=== PATIENT | male | born 1945 | race Caucasian/White ===

== ENCOUNTER 2017-03-02 08:51 | Outpatient (CLI) | payer MEDICARE, OTHER | END 2017-03-02 08:52 | disposition home or self-care (01) | LOC: SC 08:51 | PROVIDERS: ATTEND Nurse Practitioner Family | DX: G47.33 Obstructive sleep apnea (adult) (pediatric) (principal) | CPT/HCPCS: 99213; G0463; 99212 ==

== ENCOUNTER 2018-03-15 13:42 | Outpatient (CLI) | payer MEDICARE, OTHER | END 2018-03-15 13:43 | disposition home or self-care (01) | LOC: SC 13:42 | PROVIDERS: ATTEND Nurse Practitioner Family | DX: G47.33 Obstructive sleep apnea (adult) (pediatric) (principal) | CPT/HCPCS: 99213; G0463; 99212 ==

== ENCOUNTER 2018-12-20 13:44 | Outpatient (CLI) | payer MEDICARE, OTHER | END 2018-12-20 13:45 | disposition home or self-care (01) | LOC: SC 13:44 | PROVIDERS: ATTEND Nurse Practitioner Family | DX: G47.33 Obstructive sleep apnea (adult) (pediatric) (principal) | CPT/HCPCS: 99213; G0463; 99212 ==

== ENCOUNTER 2019-06-24 09:37 | Outpatient (CLI) | payer MEDICARE, OTHER ==
[2019-06-24] MEDS ORDERED: IOVERSOL 320 100 ML VIAL IVP ONE ×2 (09:38→11:00)
[2019-06-24] MEDS ORDERED: IOVERSOL 320 50 ML VIAL ONE (09:38)
[2019-06-24] MEDS ORDERED: IOVERSOL 320 50 ML VIAL PO ONE (11:00)
--- NOTE | 2019-06-26 15:01 | CT Report ---
Reason: PROSTATE CANCER Procedure Date: 06/24/2019 Accession Number: [id number] / [id number] Procedure: CT - Abdomen/Pelvis W CPT Code: Final Report FULL RESULT: EXAM: CT ABDOMEN AND PELVIS EXAM DATE: 06/24/2019 11:00 AM. CLINICAL HISTORY: Prostate cancer. COMPARISONS: None. TECHNIQUE: Routine helical CT imaging was performed through the abdomen and pelvis. IV contrast: Opti 320 90 mL. Enteric contrast: Yes. Reconstructions: Coronal and sagittal. In accordance with CT protocol optimization, one or more of the following dose reduction techniques were utilized for this exam: automated exposure control, adjustment of mA and/or KV based on patient size, or use of iterative reconstructive technique. FINDINGS: Lung Bases: Unremarkable. Liver: Normal. No masses. Gallbladder/Bile Ducts: Unremarkable. Spleen: Splenomegaly, up to 17 cm. Pancreas: Normal. Adrenal Glands: Normal. Kidneys: A left renal hypodensity is too small to characterize. No hydronephrosis. Peritoneal Cavity/Bowel: Extensive diverticulosis is noted. There is no bowel obstruction. There is no free fluid or free air. Appendix is normal. No lymphadenopathy by size criteria. Pelvic Organs: The prostate appears prominent. No definite pelvic lymphadenopathy. Vasculature: No aneurysms or other significant abnormality. Bones: No definite aggressive osseous lesions. Other: None. IMPRESSION: Prominent prostate without lymphadenopathy by size criteria. RADIA
== END 2019-06-24 09:38 | disposition home or self-care (01) ==
LOC: DI 09:37
PROVIDERS: ATTEND Urology
DX: C61 Malignant neoplasm of prostate (principal)
CPT/HCPCS: 74177; Q9967

== ENCOUNTER 2019-06-29 09:00 | Outpatient (CLI) | payer MEDICARE, OTHER ==
[2019-06-29 13:01] LABS: BASOPHILS # (AUTO) 0.1 10^3/uL (0.0-0.1); BASOPHILS % (AUTO) 0.6 %; EOSINOPHILS # (AUTO) 0.4 10^3/uL (0.0-0.7); EOSINOPHILS % (AUTO) 4.1 %; HGB - HEMOGLOBIN 14.8 g/dL (14.0-18.0); LYMPHOCYTES % (AUTO) 23.2 %; MEAN CORPUSCULAR HEMOGLOBIN 30.9 pg (27.0-31.0); MEAN CORPUSCULAR HGB CONC 33.1 g/dL (32.0-36.0); MEAN CORPUSCULAR VOLUME 93.3 fL (80.0-94.0); MEAN PLATELET VOLUME 10.7 fL (7.4-11.4); MONOCYTES # (AUTO) 0.7 10^3/uL (0.0-1.0); MONOCYTES % (AUTO) 7.6 %; NEUTROPHILS # (AUTO) 5.6 10^3/uL (1.5-6.6); NEUTROPHILS % (AUTO) 63.8 %; PLT - PLATELET COUNT 166 10^3/uL (130-450); RED BLOOD COUNT 4.79 10^6/uL (4.70-6.10); WHITE BLOOD COUNT 8.8 x10^3/uL (4.8-10.8)
[2019-06-29 13:23] LABS: ALBUMIN 4.1 g/dL (3.2-5.5); ALBUMIN/GLOBULIN RATIO 1.2 (1.0-2.2); ALKALINE PHOSPHATASE 46 IU/L (42-121); ALT ALANINE AMINOTRANSFERASE 31 IU/L (10-60); AST ASPARTATE AMINOTRANSFERASE 30 IU/L (10-42); BUN - BLOOD UREA NITROGEN 16 mg/dL (6-20); CALCIUM 9.5 mg/dL (8.5-10.3); CARBON DIOXIDE - CO2 29 mmol/L (21-32); CHLORIDE 103 mmol/L (101-111); CHOL/HDL RATIO 3.4 (<5.0); CHOLESTEROL 142 mg/dL; CREATININE 1.1 mg/dL (0.6-1.2); GFR - MDRD 66 (>89); GLUCOSE 110 mg/dL (70-100); HDL CHOLESTEROL 42 mg/dL; LDL CHOLESTEROL,CALCULATED 79 mg/dL; LDL/HDL RATIO 1.9 (<3.6); SODIUM 139 mmol/L (135-145); TOTAL PROTEIN 7.6 g/dL (6.7-8.2); VLDL CHOLESTEROL 21 mg/dL
[2019-06-29 13:29] LABS: T4 (THYROXINE) 5.67 ug/dL (6.09-12.23)
[2019-06-29 13:32] LABS: THYROID STIMULATING HORMONE 6.75 uIU/mL (0.34-5.60)
[2019-06-29 13:33] LABS: PSA TOTAL 7.283 ng/mL (0.000-2.000)
[2019-06-29 13:34] LABS: FREE T3 3.22 pg/mL (2.5-3.9)
== END 2019-06-29 23:59 | disposition home or self-care (01) ==
LOC: LAB.N 09:00
PROVIDERS: ATTEND Family Medicine
DX: E66.9 Obesity, unspecified (principal); C61 Malignant neoplasm of prostate; E03.9 Hypothyroidism, unspecified; I49.2 Junctional premature depolarization; G47.30 Sleep apnea, unspecified; H61.23 Impacted cerumen, bilateral; E78.5 Hyperlipidemia, unspecified
CPT/HCPCS: 36415; 80053; 80061; 83721; 84153; 84436; 84443; 84481; 85025

== ENCOUNTER 2019-09-19 03:24 | Day surgery (SDC) | payer MEDICARE, OTHER ==
--- NOTE | 2019-09-19 03:26 | ED Physician Documentation ---
PD HPI ABD PAIN - Stated complaint Stated Complaint: ABD PX - History obtained from History obtained from: Patient, Family - History of Present Illness Timing - onset: Enter time (00:30), Today Timing - details: Abrupt onset, Constant, Waxing and waning, Still present in ED Pain level max: >10 Pain level now: >10 ("eleven" (per patient)) Quality: Pain Location: Other (pain is across upper abdomen, more midline and RUQ than LUQ, radiates around right flank to right paralumbar region) Improved by: Other (nothing) Worsened by: Palpation Associated symptoms: Nausea, Vomiting. No: Fever, Diarrhea, Constipation Similar symptoms before: Other (has had similar but milder and self-limited episodes before) Recently seen: Not recently seen - Additional information Additional information: c/o sudden onset severe abdominal pain across upper abdomen to right flank and right paralumbar area. onset approximately 12:30 AM while at rest. Has had similar but much milder and self-limited episodes recently. Had prostatectomy 09/06/19 at [facility] Review of Systems Constitutional: reports: Sweats. denies: Fever, Chills Cardiac: reports: Reviewed and negative Respiratory: reports: Reviewed and negative GI: reports: Abdominal Pain, Nausea, Vomiting. denies: Abdominal Swelling, Constipation, Diarrhea : denies: Dysuria, Frequency, Unable to Void PD PAST MEDICAL HISTORY - Past Medical History Cardiovascular: Arrhythmia, Other Respiratory: Sleep apnea, CPAP use Endocrine/Autoimmune: HyPOthyroidism GI: None : None HEENT: Other Psych: Post traumatic stress disorder Musculoskeletal: None Derm: None - Past Surgical History Past Surgical History: Yes General: Colonoscopy Ortho: Spine surgery HEENT: Other - Present Medications Home Medications: Ambulatory Orders Medication Instructions Recorded Confirmed Carvedilol 12.5 mg PO BID 06/23/14 09/19/19 Levothyroxine [Synthroid] 150 mcg PO DAILY 06/23/14 09/19/19 Loratadine [Claritin] 10 mg PO DAILY 06/23/14 09/19/19 Losartan [Cozaar] 50 mg PO DAILY 10/31/14 09/19/19 Simvastatin 20 mg PO DAILY PM 10/31/14 09/19/19 Docusate Sodium 100 mg PO BID #60 capsule 09/19/19 Ibuprofen 800 mg PO TID #60 tablet 09/19/19 oxyCODONE [Roxicodone] 5 mg PO Q6H PRN #20 tablet 09/19/19 - Allergies Allergies/Adverse Reactions: Allergies Allergy/AdvReac Type Severity Reaction Status Date / Time No Known Drug Allergies Allergy Verified 10/31/14 09:35 - Social History Does the pt smoke?: No Smoking Status: Never smoker Does the pt drink ETOH?: No Does the pt have substance abuse?: No PD ED PE NORMAL - Vitals Vital signs reviewed: Yes - General General: Alert and oriented X 3, Well developed/nourished, Other (obvious severe painful distress) - HEENT HEENT: Moist mucous membranes - Neck Neck: Supple, no meningeal sign - Cardiac Cardiac: RRR, No murmur - Respiratory Respiratory: No respiratory distress, Clear bilaterally - Abdomen Abdomen: Soft, Non distended, Other (surgical sites (abd) are c/d/i without erythema or discharge) - Back Back: No CVA TTP - Derm Derm: Normal color, Warm and dry - Extremities Extremities: No edema PD ED PE EXPANDED - Abdomen Abdomen: Tender to palpation (across upper abdomen, worst in RUQ and epigastrium) Results - Vitals Vitals: Vital Signs - 24 hr 09/19/19 09/19/19 09/19/19 03:27 03:40 03:47 Temperature Heart Rate 60 69 65 Heart Rate [ Monitoring electrodes] Respiratory 18 18 Rate Blood Pressure 142/81 H 131/81 H Blood Pressure [Right Brachial artery] O2 Saturation 97 98 95 09/19/19 09/19/19 09/19/19 03:52 04:06 05:34 Temperature 36.8 C 36.5 C Heart Rate 63 78 Heart Rate [ Monitoring electrodes] Respiratory 17 Rate Blood Pressure 136/79 H 117/85 H Blood Pressure [Right Brachial artery] O2 Saturation 95 96 09/19/19 09/19/19 09/19/19 06:40 07:15 07:51 Temperature 36.1 C L Heart Rate 64 65 Heart Rate [ Monitoring electrodes] Respiratory 17 16 Rate Blood Pressure 119/87 H 122/74 Blood Pressure [Right Brachial artery] O2 Saturation 96 97 96 09/19/19 09/19/19 09/19/19 09:12 11:08 11:33 Temperature 36.9 C 36.1 C L Heart Rate 60 64 63 Heart Rate [ Monitoring electrodes] Respiratory 16 22 16 Rate Blood Pressure 113/70 116/69 114/66 Blood Pressure [Right Brachial artery] O2 Saturation 100 97 100 09/19/19 09/19/19 09/19/19 13:59 18:36 18:40 Temperature 37.1 C Heart Rate 66 81 77 Heart Rate [ Monitoring electrodes] Respiratory 15 18 22 Rate Blood Pressure 110/65 146/80 H 149/80 H Blood Pressure [Right Brachial artery] O2 Saturation 97 99 98 09/19/19 09/19/19 09/19/19 18:45 18:50 18:55 Temperature 37.2 C Heart Rate 78 78 77 Heart Rate [ Monitoring electrodes] Respiratory 14 16 13 Rate Blood Pressure 139/79 H 139/78 H 142/88 H Blood Pressure [Right Brachial artery] O2 Saturation 98 99 99 09/19/19 09/19/19 09/19/19 19:00 19:05 19:10 Temperature 36.5 C 37.0 C Heart Rate 74 77 77 Heart Rate [ Monitoring electrodes] Respiratory 11 L 20 19 Rate Blood Pressure 134/65 H 131/68 H 127/69 Blood Pressure [Right Brachial artery] O2 Saturation 96 99 100 09/19/19 09/19/19 09/19/19 19:15 19:20 19:25 Temperature 36.4 C L Heart Rate 75 75 82 Heart Rate [ Monitoring electrodes] Respiratory 17 15 10 L Rate Blood Pressure 131/69 H 124/77 128/66 Blood Pressure [Right Brachial artery] O2 Saturation 95 91 L 98 09/19/19 09/19/19 09/19/19 19:30 20:00 20:40 Temperature 36.7 C 36.2 C L 36.4 C L Heart Rate 75 76 64 Heart Rate [ 76 Monitoring electrodes] Respiratory 12 20 16 Rate Blood Pressure 128/63 130/71 121/66 Blood Pressure 130/71 [Right Brachial artery] O2 Saturation 96 95 96 09/19/19 09/19/19 20:59 21:29 Temperature 36.5 C 36.4 C L Heart Rate 69 66 Heart Rate [ Monitoring electrodes] Respiratory 16 16 Rate Blood Pressure 127/69 131/70 H Blood Pressure [Right Brachial artery] O2 Saturation 96 98 Oxygen O2 Source Nasal cannula - EKG (time done) No standard instances Rate: Rate (enter#) (67) Rhythm: NSR [place]: Normal Intervals: Normal UT QRS: Normal Ischemia: Normal ST segments - Labs Labs: Laboratory Tests 09/19/19 09/19/19 09/19/19 03:30 03:30 07:07 WBC 15.1 H RBC 4.38 L Hgb 13.4 L Hct 39.5 L MCV 90.2 MCH 30.6 MCHC 33.9 RDW 12.8 Plt Count 310 MPV 9.6 Neut # (Auto) 11.2 H Lymph # (Auto) 2.3 [place] # (Auto) 0.9 Eos # (Auto) 0.4 Baso # (Auto) 0.1 Absolute Nucleated RBC 0.00 Nucleated RBC % 0.0 Sodium 137 Potassium 4.0 Chloride 105 Carbon Dioxide 23 Anion Gap 9.0 BUN 15 Creatinine 1.2 Estimated GFR (MDRD) 59 L Glucose 135 H Calcium 9.2 Total Bilirubin 0.4 AST 40 ALT 51 Alkaline Phosphatase 69 Total Protein 7.5 Albumin 3.8 Globulin 3.7 Albumin/Globulin Ratio 1.0 Lipase 58 H Urine Color YELLOW Urine Clarity CLEAR Urine pH 6.5 Ur Specific [place] 1.010 Urine Protein NEGATIVE Urine Glucose (UA) NEGATIVE Urine Ketones NEGATIVE Urine Occult Blood TRACE-INTA Urine Nitrite NEGATIVE Urine Bilirubin NEGATIVE Urine Urobilinogen 0.2 (NORMAL) Ur Leukocyte Esterase NEGATIVE Ur Microscopic Review NOT INDICATED Urine Culture Comments NOT INDICATED - Rads (name of study) CT A/P w/ IV contrast Radiology: Prelim report reviewed, See rad report RUQ US Radiology: Prelim report reviewed, See rad report PD MEDICAL DECISION MAKING - ED course Complexity details: reviewed old records, reviewed results, re-evaluated patient, considered differential, d/w patient, d/w family ED course: Arrives in severe painful distress with n/v. Symptoms eventually controlled with IV dilaudid and zofran. CT A/P and US c/w acalculous cholecystitis. Leukocytosis on WBC. D/W Dr. Calles, who recommends admission for likely cholecystectomy. He recommends admit to hospitalist service. D/W Dr. Paul, will discuss with oncoming hospitalist, as shift change is imminent. Departure - Departure Disposition: ED Transfer to [facility] Clinical Impression: Acute cholecystitis without calculus Abdominal pain Qualifiers: Abdominal location: right upper quadrant Qualified Code(s): R10.11 - Right upper quadrant pain Condition: Stable Discharge Date/Time: 09/19/19 11:20
[2019-09-19] MEDS ORDERED: ONDANSETRON 4 MG/2 ML VIAL ONE (03:37)
[2019-09-19] MEDS ORDERED: HYDROmorphone 2 MG/ML VIAL ONE (03:37)
[2019-09-19] MEDS ORDERED: ONDANSETRON 4 MG/2 ML VIAL IVP STA (03:42)
[2019-09-19] MEDS ORDERED: HYDROmorphone 1 MG/ML SYRINGE IVP STA ×2 (03:42→03:57)
[2019-09-19 03:51] LABS: BASOPHILS # (AUTO) 0.1 10^3/uL (0.0-0.1); BASOPHILS % (AUTO) 0.5 %; EOSINOPHILS # (AUTO) 0.4 10^3/uL (0.0-0.7); EOSINOPHILS % (AUTO) 2.5 %; HGB - HEMOGLOBIN 13.4 g/dL (14.0-18.0); LYMPHOCYTES # (AUTO) 2.3 10^3/uL (1.5-3.5); LYMPHOCYTES % (AUTO) 15.5 %; MEAN CORPUSCULAR HEMOGLOBIN 30.6 pg (27.0-31.0); MEAN CORPUSCULAR HGB CONC 33.9 g/dL (32.0-36.0); MEAN CORPUSCULAR VOLUME 90.2 fL (80.0-94.0); MEAN PLATELET VOLUME 9.6 fL (7.4-11.4); MONOCYTES # (AUTO) 0.9 10^3/uL (0.0-1.0); MONOCYTES % (AUTO) 5.8 %; NEUTROPHILS # (AUTO) 11.2 10^3/uL (1.5-6.6); NEUTROPHILS % (AUTO) 74.3 %; PLT - PLATELET COUNT 310 10^3/uL (130-450); RED BLOOD COUNT 4.38 10^6/uL (4.70-6.10); RED CELL DISTRIBUTION WIDTH 12.8 % (12.0-15.0); WHITE BLOOD COUNT 15.1 x10^3/uL (4.8-10.8)
[2019-09-19] MEDS ORDERED: IOVERSOL 320 100 ML VIAL IVP ONE ×2 (03:54→04:40)
[2019-09-19 04:00] LABS: ALBUMIN 3.8 g/dL (3.2-5.5); BILIRUBIN,TOTAL 0.4 mg/dL (0.2-1.0); CALCIUM 9.2 mg/dL (8.5-10.3); CREATININE 1.2 mg/dL (0.6-1.2); TOTAL PROTEIN 7.5 g/dL (6.7-8.2)
--- NOTE | 2019-09-19 05:05 | CT Report ---
Reason: abd. pain Procedure Date: 09/19/2019 Accession Number: [id number] / [id number] Procedure: CT - Abdomen/Pelvis W CPT Code: Final Report FULL RESULT: EXAM: CT ABDOMEN AND PELVIS EXAM DATE: 09/19/2019 04:42 AM CLINICAL HISTORY: Abdominal pain. COMPARISONS: ABDOMEN/PELVIS W/ 06/24/2019 10:54 AM. TECHNIQUE: Routine helical CT imaging was performed through the abdomen and pelvis. IV contrast: Yes. Enteric contrast: No. Reconstructions: Coronal and sagittal. In accordance with CT protocol optimization, one or more of the following dose reduction techniques were utilized for this exam: automated exposure control, adjustment of mA and/or KV based on patient size, or use of iterative reconstructive technique. FINDINGS: Lung Bases: Unremarkable. Liver: Unremarkable. No suspicious masses. Gallbladder/Bile Ducts: Distended thick-walled gallbladder with mild pericholecystic and perihepatic edema. Spleen: Mildly enlarged, stable. Pancreas: Unremarkable. Adrenal Glands: Unremarkable. Kidneys: Small left renal cyst. No suspicious masses or hydronephrosis. Peritoneal Cavity/Bowel: Colonic diverticulosis. Of note, the pericholecystic edema does abut the hepatic flexure of the colon but the inflammation is felt to be related to cholecystitis rather than diverticulitis. Mild free fluid. No abscess. The appendix is normal. No excessive stool burden. Pelvic Organs: Bladder questionably mildly thick-walled with small fluid and gas-containing diverticulum at the bladder dome. Prostate appears to have been resected in the interim. Vasculature: No aneurysms or other significant abnormality. Bones: No acute or aggressive appearing abnormality. Moderate to severe diffuse degenerative changes throughout the spine. Other: None. IMPRESSION: 1. Probable cholecystitis. If clinical situation is equivocal, targeted ultrasound should be considered. 2. Colonic diverticulosis. Of note, the pericholecystic edema does abut the hepatic flexure of the colon but the inflammation is felt to be related to cholecystitis rather than diverticulitis. 3. Questionable mild urinary bladder inflammation and correlation with urinalysis suggested. RADIA
--- NOTE | 2019-09-19 06:07 | Ultrasound Report ---
Reason: RUQ pain, tenderness Procedure Date: 09/19/2019 Accession Number: [id number] / [id number] Procedure: US - Abdomen Limited CPT Code: Final Report FULL RESULT: EXAM: ABDOMEN ULTRASOUND LIMITED, RUQ EXAM DATE: 09/19/2019 05:24 AM. CLINICAL HISTORY: RUQ pain, tenderness. COMPARISON: None. TECHNIQUE: Real-time scanning was performed with static images obtained. FINDINGS: Liver: The liver demonstrates increased echogenicity, suspicious for fatty infiltration. It measures 14.4 cm. Main portal vein flow: Hepatopetal. Gallbladder: Sludge within the gallbladder lumen. Gallbladder wall thickening and distention, with pericholecystic fluid, suspicious for acalculous cholecystitis. Biliary System: CBD measures 4 mm. No intrahepatic or extrahepatic ductal dilatation. Other: Trace perihepatic ascites. IMPRESSION: Distended gallbladder, with gallbladder wall thickening and pericholecystic fluid, suspicious for acalculous cholecystitis. No evidence of biliary obstruction. RADIA
[2019-09-19 07:21] LABS: BILIRUBIN,URINE NEGATIVE (NEGATIVE); GLUCOSE, URINE (UA) NEGATIVE (NEGATIVE); KETONES,URINE (UA) NEGATIVE (NEGATIVE); LEUKOCYTE ESTERASE, URINE NEGATIVE (NEGATIVE); NITRITE,URINE NEGATIVE (NEGATIVE); OCCULT BLOOD,URINE TRACE-INTA (NEGATIVE); PH,URINE 6.5 PH (5.0-7.5); PROTEIN,URINE NEGATIVE (NEGATIVE); UROBILINOGEN,URINE 0.2 (NORMAL) E.U./dL (NORMAL)
[2019-09-19 07:42] LABS: CLARITY,URINE CLEAR (CLEAR)
[2019-09-19] MEDS ORDERED: PIPERACILLIN/TAZOBACTAM 3.375 GM in SODIUM CHLORIDE 0.9% MINIBAG 100 ML IV STA (08:50)
[2019-09-19] MEDS ORDERED: LACTATED RINGERS 1,000 ML IV STA (08:50)
[2019-09-19] MEDS ORDERED: LIDOCAINE-MPF 2% 5 ML VIAL IM ONE (10:16)
[2019-09-19] MEDS ORDERED: MIDAZOLAM 2 MG/2 ML VIAL IVP ONE (10:16)
[2019-09-19] MEDS ORDERED: GLYCOPYRROLATE 1 MG/5 ML VIAL IVP ONE (10:16)
[2019-09-19] MEDS ORDERED: PROPOFOL 200 MG/20 ML VIAL IVP ONE (10:16)
[2019-09-19] MEDS ORDERED: DEXAMETHASONE 4 MG/ML VIAL IVP ONE (10:16)
[2019-09-19] MEDS ORDERED: ROCURONIUM 50 MG/5 ML VIAL IVP ONE (10:16)
[2019-09-19] MEDS ORDERED: fentaNYL 100 MCG/2 ML VIAL IVP ONE (10:16)
--- NOTE | 2019-09-19 10:50 | ED Physician Documentation ---
ED Addendum - Addendum Addendum: 09/19/19 10:48 Handoff to me was given by Dr. Patterson. I talked with Dr. Martinez when she came on service and she said it sounded to be strictly same-day surgery. The be happy to consult if the surgeon needed medical clearance or such. Talk with Dr. Evans who is now on for surgery and she will do the primary care of the patient and will be taking him to surgery later today but will be at the add-on at the end of the day. The patient was given a dose of Zosyn for potential early infection. He will be given medicine as needed for discomfort. He will be kept n.p.o. Acute cholecystitis acalculous #2 upper abdominal pain Disposition the patient is to be taken to the OR on same day surgery
--- NOTE | 2019-09-19 11:16 | CONSULTATION NOTE ---
Referring Provider Name of Referring Provider:: ED Consult Date: 09/19/19 Chief Complaint - Chief Complaint Chief Complaint: abdominal pain History of Present Illness - Admitted From Admitted From:: ED - History of Present Illness HPI Comment/Other: 73yo M s/p a robotic radical prostatectomy 09/06/2019 with 10 days of abdominal pain. It is mostly right upper quadrant and has not seemed related to his surgery. He thought it was gas pains. It mostly has happened after eating. Never had similar pain. While most days it has gone away in 30-60 minutes, today it persisted for 3+ hours so he came to the ED. Imaging shows acute cholecystitis which is consistent with exam and history. Patient tolerated his recent surgery well and has had no bleeding or anesthesia issues in his life. He does not have other significant medical issues and has had no other abdominal surgeries. History - Past Medical History Cardiovascular: reports: Arrhythmia, Other Respiratory: reports: Sleep apnea, CPAP use Endocrine/Autoimmune: reports: HyPOthyroidism GI: reports: None : reports: None HEENT: reports: Other Psych: reports: Post traumatic stress disorder Musculoskeletal: reports: None Derm: reports: None MRSA Hx?: No - Past Surgical History General: reports: Colonoscopy Ortho: reports: Spine surgery /DIRECTOR OF STRATEGIC COMMUNICATIONS: reports: Other (robotic radical prostatectomy ) HEENT: reports: Other - Family & Social History Living arrangement: At home Living Situation: With spouse/s.o. - Substance History Use: Uses substance without health or social issues: NONE Meds/Allgy - Home Medications Home Medications: Ambulatory Orders Medication Instructions Recorded Confirmed Carvedilol 12.5 mg PO BID 06/23/14 09/19/19 Levothyroxine [Synthroid] 150 mcg PO DAILY 06/23/14 09/19/19 Loratadine [Claritin] 10 mg PO DAILY 06/23/14 09/19/19 Losartan [Cozaar] 50 mg PO DAILY 10/31/14 09/19/19 Simvastatin 20 mg PO DAILY PM 10/31/14 09/19/19 - Allergies Allergies/Adverse Reactions: Allergies Allergy/AdvReac Type Severity Reaction Status Date / Time No Known Drug Allergies Allergy Verified 10/31/14 09:35 Review of Systems - Gastrointestinal Gastrointestinal: reports: Abdominal pain - All Other Systems All Other Systems: reports: Reviewed and negative Exam - Vital Signs Reviewed Vital Signs: Yes Vital Signs: Vital Signs x48h Temp Pulse Resp BP Pulse Ox 09/19/19 11:08 64 22 116/69 97 09/19/19 09:12 36.9 C 60 16 113/70 100 09/19/19 07:51 36.1 C L 65 16 122/74 96 09/19/19 07:15 97 09/19/19 06:40 64 17 119/87 H 96 09/19/19 05:34 36.5 C 78 17 117/85 H 96 09/19/19 04:06 63 136/79 H 95 09/19/19 03:52 36.8 C 09/19/19 03:47 65 18 131/81 H 95 09/19/19 03:40 69 98 09/19/19 03:27 60 18 142/81 H 97 - Physical Exam Comments/Other: AAO, NAD, overweight male EOMI, MMM, no scleral icterus unlabored RA soft, non-distended, mild ttp RUQ, incisions healing well MAEW visible skin dry and warm Conclusion and Plan - Lab Results Laboratory Results 09/19/19 07:07: Urine Color YELLOW, Urine Clarity CLEAR, Urine pH 6.5, Ur Specific [place] 1.010, Urine Protein NEGATIVE, Urine Glucose (UA) NEGATIVE, Urine Ketones NEGATIVE, Urine Occult Blood TRACE-INTA, Urine Nitrite NEGATIVE, Urine Bilirubin NEGATIVE, Urine Urobilinogen 0.2 (NORMAL), Ur Leukocyte Esterase NEGATIVE, Ur Microscopic Review NOT INDICATED, Urine Culture Comments NOT INDICATED 09/19/19 03:30: Sodium 137, Potassium 4.0, Chloride 105, Carbon Dioxide 23, Anion Gap 9.0, BUN 15, Creatinine 1.2, Estimated GFR (MDRD) 59 L, Glucose 135 H, Calcium 9.2, Total Bilirubin 0.4, AST 40, ALT 51, Alkaline Phosphatase 69, Total Protein 7.5, Albumin 3.8, Globulin 3.7, Albumin/Globulin Ratio 1.0, Lipase 58 H 09/19/19 03:30: WBC 15.1 H, RBC 4.38 L, Hgb 13.4 L, Hct 39.5 L, MCV 90.2, MCH 30.6, MCHC 33.9, RDW 12.8, Plt Count 310, MPV 9.6, Neut # (Auto) 11.2 H, Lymph # (Auto) 2.3, [place] # (Auto) 0.9, Eos # (Auto) 0.4, Baso # (Auto) 0.1, Absolute Nucleated RBC 0.00, Nucleated RBC % 0.0 - Diagnostic Imaging Results Diagnostic Imaging Results: positive: Final report reviewed, Read contemporaneously - Diagnosis Diagnosis: cholecystitis - Plan Plan: plan for lap dmitry --> all R/B/A discussed and pt wishes to proceed --> NPO --> MIVFs, prn anti-emetics and anti nausea meds --> zosyn started in ED
[2019-09-19] MEDS ORDERED: LACTATED RINGERS 1,000 ML IV ONE ×3 (11:21→18:18)
[2019-09-19] MEDS ORDERED: CEFAZOLIN SODIUM IN 0.9 % NACL 2 GM/100 ML BAG IV ONE (12:04)
[2019-09-19] MEDS ORDERED: LIDOCAINE 2%-EPI 1:100000 20 ML MDV ONE (14:17)
[2019-09-19] MEDS ORDERED: BUPIVACAINE 0.25% PF 30 ML VIAL ONE (14:17)
--- NOTE | 2019-09-19 14:28 | ANESTHESIA ---
Pre-Anesthesia VS, & Labs - Diagnosis Diagnosis cholecystitis - Procedure laparoscopic cholecytectomy Vital Signs: Temp Pulse Resp BP Pulse Ox 36.1 C L 66 15 110/65 97 09/19/19 11:33 09/19/19 13:59 09/19/19 13:59 09/19/19 13:59 09/19/19 13:59 Height 6 ft Weight (kg) 113.4 kg Body Mass Index 35.2 - NPO >8 hours - Lab Results Current Lab Results: Laboratory Tests 09/19/19 03:30: Sodium 137, Potassium 4.0, Chloride 105, Carbon Dioxide 23, Anion Gap 9.0, BUN 15, Creatinine 1.2, Estimated GFR (MDRD) 59 L, Glucose 135 H, Calcium 9.2, Total Bilirubin 0.4, AST 40, ALT 51, Alkaline Phosphatase 69, Total Protein 7.5, Albumin 3.8, Globulin 3.7, Albumin/Globulin Ratio 1.0, Lipase 58 H 09/19/19 03:30: WBC 15.1 H, RBC 4.38 L, Hgb 13.4 L, Hct 39.5 L, MCV 90.2, MCH 30.6, MCHC 33.9, RDW 12.8, Plt Count 310, MPV 9.6, Neut # (Auto) 11.2 H, Lymph # (Auto) 2.3, [place] # (Auto) 0.9, Eos # (Auto) 0.4, Baso # (Auto) 0.1, Absolute Nucleated RBC 0.00, Nucleated RBC % 0.0 Lab results reviewed: Yes Fish Bones: 09/19/19 03:30 09/19/19 03:30 Home Medications and Allergies Carvedilol 12.5 mg PO BID 06/23/14 Levothyroxine [Synthroid] 150 mcg PO DAILY 06/23/14 Loratadine [Claritin] 10 mg PO DAILY 06/23/14 Losartan [Cozaar] 50 mg PO DAILY 10/31/14 Simvastatin 20 mg PO DAILY PM 10/31/14 Allergies/Adverse Reactions: Allergies Allergy/AdvReac Type Severity Reaction Status Date / Time No Known Drug Allergies Allergy Verified 10/31/14 09:35 Anes History & Medical History - Anesthetic History Anesthesia Complications: reports: No previous complications Family history of Anesthesia Complications: Denies Family history of Malignant Hyperthermia: Denies - Medical History Cardiovascular: reports: Arrhythmia (remote hx PVCs Afib?), Other Pulmonary: reports: Sleep apnea, CPAP use Gastrointestinal: reports: None Urinary: reports: Benign prostate hypertrophy, Other Musculoskeletal: reports: Chronic back pain Endocrine/Autoimmune: reports: HyPOthyroidism Skin: reports: None Smoking Status: Never smoker - Surgical History General: Colonoscopy Eyes Ears Nose Throat (EENT): Cataracts, Other Urologic: Prostatic surgery Gynecologic: Other Orthopedic: Spine surgery Exam General: Alert, Oriented x3, Cooperative Dental: WNL, Partials Upper Mouth Opening: Greater than 4 Fingerbreadths Neck Mobility: Normal Mallampati classification: II Thyromental Distance: greater than 6 cm Respiratory: Lungs clear, Normal breath sounds, No respiratory distress Cardiovascular: Regular rate Neurological: Normal speech Mental/Cognitive Status: Alert/Oriented X3, Normal for patient Cognitive Status: Within normal limits Plan Anesthesia Type: General Consent for Procedure(s) Verified and Reviewed: Yes Code Status: Attempt Resuscitation ASA classification: 3-Severe systemic disease Is this case an emergency?: No
[2019-09-19] MEDS ORDERED: LIDOCAINE 1%-EPI 1:100000 30 ML MDV SUBQ ONE (18:25)
[2019-09-19] MEDS ORDERED: BUPIVACAINE 0.25% PF 30 ML VIAL SUBQ ONE (18:26)
[2019-09-19] MEDS ORDERED: ONDANSETRON 4 MG/2 ML VIAL IVP PRN (18:35)
[2019-09-19] MEDS ORDERED: oxyCODONE 5 MG TABLET PO PRN (18:35)
--- NOTE | 2019-09-19 18:38 | OPERATIVE REPORT ---
Operative Report - General Procedure Date: 09/19/19 Pre-Op Diagnosis: Acute Cholecystitis Procedure Performed: Laparoscopic Cholecystectomy Post Op Diagnosis: same - Procedure Note Primary Surgeon: Nick Johnson MD Anesthesia Provider: Brennan Gan CRNA Anesthesia Technique: General ET tube Pathology: gallbladder Estimated Blood Loss (mL): 50 Indications: 73yo gentleman with 7-10 days of post-prandial abdominal pain. Most episodes self-limited but today it was worse and persisted for several hours so he came to the ED. Workup showed acute cholecystitis. He elects lap dmitry after review of risks, benefits, and alternatives. Findings: highly inflamed and distended gallbladder Complications: bradycardia to low 50s on initial insufflation - Other Other Information/Narrative: The patient was taken to the operating room and placed on operating table in supine position. The abdomen was prepped and draped in sterile fashion and a time out is performed with the team present. Local anesthesia was used to infiltrate each site prior to incision. Using a 15- blade scalpel, a small 5 mm incision was made just to the right of the umbilicus. Using a 5 mm Optiview camera port, the laparoscope was inserted into the abdomen. Once confirmed to be within the peritoneal cavity, the abdomen was insufflated with air. Initial diagnostic laparoscopy showed no injury from initial trocar placement. Pt became moderately bradycardic so we held until he recovered. Then three secondary trocars were then placed in the following locations: a 5mm trocar was then placed in the right lateral subcostal margin, a 5mm trocar in the right midclavicular line, and a 12 mm trocar was placed in the midline in the midepigastric area. A blunt grasper was then used to retract the fundus of the gallbladder up over the dome of the liver; this necessitated draining with a large bore needle due to the tense nature of the gallbladder. Dark bile is returned. A second blunt grasper was used to retract the infundibulum caudally. A thick inflammatory rind was present and oozed blood readily. Using blunt dissection and electrocautery, the cystic duct and cystic artery were identified. These were circumferentially cleaned distally and proximally. The critical view was seen. Once adequate length was obtained, the cystic duct was triply clipped proximally and singly clipped distally. The cystic artery was doubly clipped proximally and singly clipped distally. The cystic duct and cystic artery were then transected using hook scissors. The clips were noted to completely traverse their respective structures with no evidence of bile leakage or bleeding. The remaining peritoneal attachments of the gallbladder and the liver bed were taken down using electrocautery. Once free, the gallbladder was placed into an EndoCatch retrieval bag and removed through the 12 mm port. This required minimal dilatation with a Zabrina clamp as well as extension of the skin incision in order to remove the specimen. The gallbladder was then passed off as a specimen. Hemostasis was tedious as the high degree of inflammation caused ongoing oozing from the fossa; it was achieved with electrocautery. The area is thoroughly irrigated and free fluid suctioned. The 12mm port site fascia was reapproximated using an EndoClose device and an 0-vicryl suture. The secondary trocars were removed under direct vision noting no bleeding. The abdomen was allowed to desufflate fully. The final trocar was removed. The skin incisions were then reapproximated using 4-0 Monocryl in an interrupted subcuticular fashion. The abdomen was cleaned and dried and Dermabond was placed over each of the incisions. The patient was awakened and taken to the postanesthesia care unit in stable condition. All counts were correct at the end of the procedure.
[2019-09-19] MEDS ORDERED: ACETAMINOPHEN 1,000 MG/100 ML 100 ML IV ONE (18:40)
[2019-09-19] MEDS: HYDROmorphone 0.5 MG/0.5 ML SYRINGE IVP PRN ×3 (19:16→21:39)
[2019-09-19] MEDS ORDERED: HYDROmorphone 0.5 MG/0.5 ML SYRINGE ONE (19:18)
[2019-09-19] MEDS ORDERED: fentaNYL 100 MCG/2 ML VIAL ONE (19:18)
[2019-09-19 22:08] VITALS: BP 131/71
== END 2019-09-19 22:57 | disposition home or self-care (01) ==
LOC: ED 03:24 → SDS 10:15 → MS2 18:54 → SDS 22:57
PROVIDERS: ATTEND Surgery
PROC: 0FT44ZZ Resection of Gallbladder, Percutaneous Endoscopic Approach (ICD-10-PCS; principal; 2019-09-19 15:15)
DX: K81.2 Acute cholecystitis with chronic cholecystitis (principal); I97.791 Other intraoperative cardiac functional disturbances during other surgery; R00.1 Bradycardia, unspecified; Y83.6 Removal of other organ (partial) (total) as the cause of abnormal reaction of the patient, or of later complication, without mention of misadventure at the time of the procedure; Y92.234 Operating room of hospital as the place of occurrence of the external cause; N40.0 Benign prostatic hyperplasia without lower urinary tract symptoms; G47.30 Sleep apnea, unspecified; Z79.899 Other long term (current) drug therapy; Z90.79 Acquired absence of other genital organ(s); Z86.79 Personal history of other diseases of the circulatory system
CPT/HCPCS: 36415; 47562; 74177; 76705; 80053; 81003; 83690; 85025; 93005; 96374; 96375; 99284; 99285; A9270; J0131; J0690; J1170; J7120; Q9967; 81001; 87086

== ENCOUNTER 2019-10-30 12:17 | Outpatient (CLI) | payer MEDICARE, OTHER | END 2019-10-30 12:18 | disposition home or self-care (01) | LOC: LAB 12:17 | PROVIDERS: ATTEND Student in an Organized Health Care Education/Training Program | DX: C61 Malignant neoplasm of prostate (principal) | CPT/HCPCS: 36415; 84153 ==

== ENCOUNTER 2020-01-22 10:49 | Outpatient (CLI) | payer MEDICARE, OTHER ==
--- NOTE | 2020-01-22 11:29 | SLEEP CARE CONSULTATION ---
Information from patient questionnaire entered by Princess Vargas. I have reviewed and concur with the information entered by Princess Vargas. This document represents the service I personally performed and the decisions made by me, Joann Goss, RN, MSN, RESEARCH AND DEVELOPMENT DIRECTOR. History of Present Illness Service Date and Time: 01/22/2020 1049 Previous diagnosis: Severe, Obstructive Sleep Apnea-Hypopnea Syndrome AHI: 40.4 Reason for follow up: annual Equipment type: CPAP (getting supplies as needed) Equipment obtained from: [employer] Mask style: Nasal (Wisp) Mask brand: Respironics Backup mask available: Yes (old mask ) Last cushion change: about 2 weeks ago Prior sleep studies: Yes CPAP Compliance Data - Data Reviewed with Patient Average duration of nightly device use: 7H 16M Compliance rate %: 99 Current pressure setting (cmH2O): 11-13 Average residual AHI: 2.0 ([id number] ) Average large leak: 24 liters per minute Subjective Patient concerns: reports: other (current mask not fitting as well would like to go back to Wisp extra large cushion). denies: aerophagia, mask discomfort, air blowing in eyes, mask leak noise, condensation in mask/hose, nasal congestion, dry mouth, nose, throat, epistaxis Observed to snore while using device: No Current pressure setting perceived as: comfortable On therapy, patient: reports: sleeping better, awakening more refreshed, being more awake and alert during the day, more rested overall. denies: drowsiness while driving Initial [place] Sleepiness Scale score: 4 Current [place] Sleepiness Scale score: 5 Allergies and Home Medications Known drug allergies: No Home medication list reviewed: No (no changes stated ) Review of Systems Review of systems same as previous: No (cholestectomy 09/19/19, TURP 09/06/19) Physical Exam Blood Pressure: 110/60 Cuff size: long Heart Rate: 60 O2 Saturation: 97 Height: 5 ft 11 in Weight: 267 lb Body Mass Index: 37.2 BMI Classification: Obese Impression and Plan 1. Obstructive Sleep Apnea-Hypopnea Syndrome, severe, with good treatment compliance and good apnea control. On CPAP therapy, the patient has better sleep quality and is more rested overall. For his mask concerns, I ordered a mask refitting. Current mask style is not fitting as well as previous Wisp mask extra large cushion. Until then adjust headgear. Patient has lost weight. Currently patients BMI is 37.5 obesity class. Obesity increases the risk of apnea, CPAP pressure requirements and overall health risks especially cardiovascular and diabetes. Thus patient is advised to continue to lose weight. A diet consultation can be helpful in achieving optimal weight loss goals. The BMI chart was reviewed. Patient encouraged to discuss their weight loss goals with their PCP and consider a referral to a cut off saw operator. The patient's CPAP pressure range should accommodate some weight loss. Symptoms to report for additional pressure adjustment discussed. Patient's apnea severity and rationale for treatment to reduce apnea, improve sleep quality and reduce cardiovascular and cerebrovascular events was reviewed. * Continue auto CPAP pressure at 11-13 cmH2O * Notify me if snoring with mask or feeling that the pressure is too much or too little * Continue to lose weight * Call this office if any problems using CPAP * Return for follow up in 1 year , or sooner if concerns arise Visit Type: In Office Time Spent with Patient (minutes): 20 Provider Statement: I spent 100% of the Face to Face Visit with the patient with greater than 50% spent counseling the patient and coordination of care.
[2020-01-22 11:30] VITALS: BP 110/60
== END 2020-01-22 10:50 | disposition home or self-care (01) ==
LOC: SC 10:49
PROVIDERS: ATTEND Nurse Practitioner Family
DX: G47.33 Obstructive sleep apnea (adult) (pediatric) (principal); E66.9 Obesity, unspecified; Z68.37 Body mass index [BMI] 37.0-37.9, adult
CPT/HCPCS: 99213; G0463; 99212

== ENCOUNTER 2020-01-31 08:23 | Outpatient (CLI) | payer MEDICARE, OTHER | END 2020-01-31 08:24 | disposition home or self-care (01) | LOC: LAB 08:23 | PROVIDERS: ATTEND Student in an Organized Health Care Education/Training Program | DX: C61 Malignant neoplasm of prostate (principal) | CPT/HCPCS: 36415; 84153 ==

== ENCOUNTER 2020-05-01 13:46 | Outpatient (CLI) | payer MEDICARE, OTHER ==
--- NOTE | 2020-05-01 17:00 | Ultrasound Report ---
PROCEDURE: Duplex Ext Veins Right INDICATIONS: RIGHT LEG EDEMA TECHNIQUE: Real-time imaging, as well as color and pulse Doppler interrogation, were performed of the lower extr emity deep veins from the inguinal ligament to the popliteal fossa. COMPARISON: None. FINDINGS: The deep veins are normally compressible, and free of intraluminal thrombus. Color and pu lse Doppler demonstrate normal phasic intraluminal flow. There is normal augmentation response to di stal compression maneuver. IMPRESSION: No deep venous thrombosis. Reviewed by: Gisela Atkinson MD on 05/01/2020 4:58 PM PDT Approved by: Gisela Atkinson MD on 05/01/2020 4:58 PM PDT Station ID: [id number]
== END 2020-05-01 13:47 | disposition home or self-care (01) ==
LOC: DI 13:46
PROVIDERS: ATTEND Family Medicine
DX: R60.0 Localized edema (principal)

== ENCOUNTER 2020-06-24 08:01 | Day surgery (SDC) | payer MEDICARE, OTHER ==
[2020-06-24] MEDS ORDERED: LACTATED RINGERS 1,000 ML IV ONE ×2 (08:17→10:15)
[2020-06-24] MEDS ORDERED: MIDAZOLAM 2 MG/2 ML VIAL IVP ONE (09:35)
[2020-06-24] MEDS ORDERED: fentaNYL 250 MCG/5 ML VIAL IVP ONE (09:35)
[2020-06-24 10:44] VITALS: BP 114/73
== END 2020-06-24 08:02 | disposition home or self-care (01) ==
LOC: SDS 08:01
PROVIDERS: ATTEND Internal Medicine Gastroenterology
PROC: 0DBN8ZZ Excision of Sigmoid Colon, Via Natural or Artificial Opening Endoscopic (ICD-10-PCS; principal; 2020-06-24 09:15)
DX: Z12.11 Encounter for screening for malignant neoplasm of colon (principal); D12.5 Benign neoplasm of sigmoid colon; K57.30 Diverticulosis of large intestine without perforation or abscess without bleeding; G47.30 Sleep apnea, unspecified; E66.9 Obesity, unspecified; Z68.37 Body mass index [BMI] 37.0-37.9, adult; Z87.891 Personal history of nicotine dependence
CPT/HCPCS: 45385; J3010; J7120

== ENCOUNTER 2020-07-30 11:53 | Outpatient (CLI) | payer MEDICARE, OTHER | END 2020-07-30 11:54 | disposition home or self-care (01) | LOC: LAB 11:53 | PROVIDERS: ATTEND Student in an Organized Health Care Education/Training Program | DX: C61 Malignant neoplasm of prostate (principal) | CPT/HCPCS: 36415; 84153 ==

== ENCOUNTER 2020-11-01 10:18 | Outpatient (CLI) | payer MEDICARE, OTHER | END 2020-11-01 10:19 | disposition home or self-care (01) | LOC: LAB 10:18 | PROVIDERS: ATTEND Student in an Organized Health Care Education/Training Program | DX: C61 Malignant neoplasm of prostate (principal) | CPT/HCPCS: 36415; 84153 ==

== ENCOUNTER 2021-02-04 09:59 | Outpatient (CLI) | payer MEDICARE, OTHER ==
--- NOTE | 2021-02-04 10:48 | SLEEP CARE CONSULTATION ---
Information from patient questionnaire entered by Wendy Allen. I have reviewed and concur with the information entered by Wendy Allen. This document represents the service I personally performed and the decisions made by me, Doreen Adam ARNP. History of Present Illness Service Date and Time: 02/04/2021 0959 Previous diagnosis: Severe, Obstructive Sleep Apnea-Hypopnea Syndrome AHI: 40.4 (in 2006) Reason for follow up: annual (last seen 01/2020) Equipment type: CPAP Equipment obtained from: [facility] (getting supplies as needed) Mask style: Nasal Mask brand: Respironics (Wisp) Backup mask available: Yes (old mask (full face)) Last cushion change: 1.5 weeks Prior sleep studies: Yes Year and Where: 2006 - [facility] in [place], [place] Type of Sleep Study: Polysomnography HPI additional information: TATIANA GILMORE was diagnosed to have severe, AHI 40.4, obstructive sleep apnea- hypopnea syndrome and returned today for CPAP therapy annual follow-up. CPAP Compliance Data - Data Reviewed with Patient Average duration of nightly device use: 7 hr 9 min Compliance rate %: 100 (180 days) Current pressure setting (cmH2O): 11-13 Humidity settin Average residual AHI: 1.6 Subjective Patient concerns: reports: mask leak noise (when he forgets to shave for a while). denies: aerophagia, mask discomfort, air blowing in eyes, condensation in mask/hose, nasal congestion, dry mouth, nose, throat, epistaxis, other Observed to snore while using device: No Current pressure setting perceived as: comfortable On therapy, patient: reports: sleeping better, awakening more refreshed, being more awake and alert during the day, more rested overall. denies: drowsiness while driving Initial [place] Sleepiness Scale score: 3 (in 2010) Current [place] Sleepiness Scale score: 7 Allergies and Home Medications Home medication list reviewed: Yes (no changes) Review of Systems Review of systems same as previous: Yes (no changes) Physical Exam Heart Rate: 57 O2 Saturation: 98 Height: 6 ft Weight: 268 lb Body Mass Index: 36.3 BMI Classification: Obese Impression and Plan 1. Obstructive Sleep Apnea-Hypopnea Syndrome, severe, with excellent treatment compliance and good apnea control. On CPAP therapy, the patient has better sleep quality and is more rested overall. He is satisfied with his therapy and has significant improvement of his apneas. Currently patients BMI is 36.3. Obesity increases the risk of apnea, CPAP pressure requirements and overall health risks especially cardiovascular and diabetes. Thus patient is advised to lose weight. Weight loss can be done with reducing portion size, reducing refined foods and balancing content with vegetables, fruit and protein. The patient's CPAP pressure range should accommodate some weight loss. Patient voiced understanding. I will follow up with him next year. Patient's apnea severity and rationale for treatment to reduce apnea, improve sleep quality and reduce cardiovascular and cerebrovascular events was reviewed. I also reviewed the benefit of consistent device use of CPAP for cardiac disease. * Continue auto CPAP pressure at 11-13 cmH2O * Notify me if snoring with mask or feeling that the pressure is too much or too little * Attempt to lose weight * Call this office if any problems using CPAP * Return for follow up in 1 year, or sooner if concerns arise Counseling Topics: Spare mask, Weight loss health impact Visit Type: In Office Time Spent with Patient (minutes): 20 Provider Statement: I spent 100% of the Face to Face Visit with the patient with greater than 50% spent counseling the patient and coordination of care.
== END 2021-02-04 10:00 | disposition home or self-care (01) ==
LOC: SC 09:59
PROVIDERS: ATTEND Nurse Practitioner Family
DX: G47.33 Obstructive sleep apnea (adult) (pediatric) (principal); E66.9 Obesity, unspecified; Z68.36 Body mass index [BMI] 36.0-36.9, adult
CPT/HCPCS: 99213; G0463; 99212

== ENCOUNTER 2021-02-10 09:58 | Outpatient (CLI) | payer MEDICARE, OTHER ==
[2021-02-10 10:51] LABS: PSA FREE < 0.005 ng/mL (0.16-2.81); PSA TOTAL < 0.008 ng/mL (0.000-2.000)
== END 2021-02-10 09:59 | disposition home or self-care (01) ==
LOC: LAB 09:58
PROVIDERS: ATTEND Student in an Organized Health Care Education/Training Program
DX: C61 Malignant neoplasm of prostate (principal)
CPT/HCPCS: 36415; 84153; 84154

== ENCOUNTER 2021-07-23 10:40 | Outpatient (CLI) | payer MEDICARE, OTHER | END 2021-07-23 10:41 | disposition home or self-care (01) | LOC: LAB 10:40 | PROVIDERS: ATTEND Urology | DX: C61 Malignant neoplasm of prostate (principal) | CPT/HCPCS: 36415; 84153 ==

== ENCOUNTER 2021-07-29 08:00 | Outpatient (CLI) | payer MEDICARE, OTHER ==
[2021-07-29 12:03] LABS: BASOPHILS % (AUTO) 0.6 %; EOSINOPHILS # (AUTO) 0.2 10^3/uL (0.0-0.7); EOSINOPHILS % (AUTO) 3.4 %; HCT - HEMATOCRIT 44.4 % (42.0-52.0); HGB - HEMOGLOBIN 15.3 g/dL (14.0-18.0); LYMPHOCYTES # (AUTO) 1.8 10^3/uL (1.5-3.5); LYMPHOCYTES % (AUTO) 33.9 %; MEAN CORPUSCULAR HGB CONC 34.5 g/dL (32.0-36.0); MEAN CORPUSCULAR VOLUME 89.9 fL (80.0-94.0); MEAN PLATELET VOLUME 10.7 fL (7.4-11.4); MONOCYTES # (AUTO) 0.5 10^3/uL (0.0-1.0); MONOCYTES % (AUTO) 9.3 %; NEUTROPHILS # (AUTO) 2.8 10^3/uL (1.5-6.6); NEUTROPHILS % (AUTO) 52.1 %; PLT - PLATELET COUNT 165 10^3/uL (130-450); RED BLOOD COUNT 4.94 10^6/uL (4.70-6.10); WHITE BLOOD COUNT 5.4 x10^3/uL (4.8-10.8)
[2021-07-29 12:31] LABS: THYROID STIMULATING HORMONE 1.02 uIU/mL (0.34-5.60)
[2021-07-29 12:49] LABS: ALBUMIN/GLOBULIN RATIO 1.3 (1.0-2.2); ALKALINE PHOSPHATASE 43 IU/L (42-121); ALT ALANINE AMINOTRANSFERASE 35 IU/L (10-60); AST ASPARTATE AMINOTRANSFERASE 32 IU/L (10-42); BUN - BLOOD UREA NITROGEN 16 mg/dL (6-20); CALCIUM 9.3 mg/dL (8.5-10.3); CARBON DIOXIDE - CO2 28 mmol/L (21-32); CHLORIDE 102 mmol/L (101-111); CHOL/HDL RATIO 3.6 (<5.0); CHOLESTEROL 142 mg/dL; CREATININE 1.1 mg/dL (0.6-1.2); GFR - MDRD 65 (>89); GLUCOSE 110 mg/dL (70-100); HDL CHOLESTEROL 39 mg/dL; LDL CHOLESTEROL,CALCULATED 84 mg/dL; LDL/HDL RATIO 2.2 (<3.6); POTASSIUM 4.1 mmol/L (3.5-5.0); SODIUM 136 mmol/L (135-145); TOTAL PROTEIN 7.1 g/dL (6.7-8.2); TRIGLYCERIDES 93 mg/dL; VLDL CHOLESTEROL 19 mg/dL
== END 2021-07-29 23:59 | disposition home or self-care (01) ==
LOC: LAB.WCP 08:00
PROVIDERS: ATTEND Family Medicine
DX: R60.0 Localized edema (principal); R42 Dizziness and giddiness; E78.5 Hyperlipidemia, unspecified; C61 Malignant neoplasm of prostate; E66.9 Obesity, unspecified; E03.9 Hypothyroidism, unspecified; I42.9 Cardiomyopathy, unspecified; G47.30 Sleep apnea, unspecified
CPT/HCPCS: 36415; 80053; 80061; 83721; 84443; 85025

== ENCOUNTER 2021-11-10 08:43 | Outpatient (CLI) | payer MEDICARE, OTHER | END 2021-11-10 08:44 | disposition home or self-care (01) | LOC: LAB 08:43 | PROVIDERS: ATTEND Urology | DX: C61 Malignant neoplasm of prostate (principal) | CPT/HCPCS: 36415; 84153 ==

== ENCOUNTER 2022-03-27 14:38 | Outpatient (CLI) | payer MEDICARE, OTHER ==
[2022-03-27 15:22] VITALS: BP 116/68
--- NOTE | 2022-03-27 15:22 | SLEEP CARE CONSULTATION ---
Information from patient questionnaire entered by Muriel Dorado. I have reviewed and concur with the information entered by Muriel Dorado. This document represents the service I personally performed and the decisions made by me, Doreen Adam ARNP. History of Present Illness Service Date and Time: 03/27/2022 1438 Previous diagnosis: Severe, Obstructive Sleep Apnea-Hypopnea Syndrome AHI: 40.4 (in 2006) Reason for follow up: annual (ANNUAL, LAST SEEN 02/05) Accompanied by: Spouse Equipment type: CPAP (RESMED) Equipment obtained from: [employer] (getting supplies as needed) Mask style: Nasal Mask brand: Respironics (Wisp) Backup mask available: Yes (old mask) Last cushion change: 1 week Prior sleep studies: Yes Year and Where: [address] - [facility] in [place], [place] Type of Sleep Study: Polysomnography HPI additional information: TATIANA GILMORE was diagnosed to have severe, AHI 40.4, obstructive sleep apnea- hypopnea syndrome and returned today for CPAP therapy annual follow-up. Sleep Study - Results Type of Sleep Study: Polysomnography Prior sleep studies: Yes Year and Where: 2006 - [facility] in [place], [place] CPAP Compliance Data - Data Reviewed with Patient Average duration of nightly device use: 6 HOURS, 54 MINUTES Compliance rate %: 97 (09/27/21 TO 03/25/22; 178/180 days used) Current pressure setting (cmH2O): 11-13 Average residual AHI: 1.8 Average large leak: 29.7 L/min Subjective Patient concerns: reports: mask leak noise. denies: aerophagia, mask discomfort, air blowing in eyes, condensation in mask/hose, nasal congestion, dry mouth, nose, throat, epistaxis, other Observed to snore while using device: No Current pressure setting perceived as: comfortable On therapy, patient: reports: sleeping better, awakening more refreshed, being more awake and alert during the day, more rested overall. denies: drowsiness while driving Initial [place] Sleepiness Scale score: 3 (in 2010) Current [place] Sleepiness Scale score: 3 (03/27/22) Allergies and Home Medications Home medication list reviewed: Yes (no changes) Allergy and home medication list: Allergies No Known Drug Allergies Allergy (Verified 10/31/14 09:35) Review of Systems Review of systems same as previous: Yes (no changes) Physical Exam Vital signs obtained and entered by: Ela DORADO MA Blood Pressure: 116/68 (left arm ) Cuff size: regular Heart Rate: 65 O2 Saturation: 98 Height: 6 ft Weight: 259 lb Weight change since last visit: 9 lb loss Body Mass Index: 35.1 BMI Classification: Obese Impression and Plan 1. Obstructive Sleep Apnea-Hypopnea Syndrome, severe, with good treatment compliance and good apnea control. On CPAP therapy, the patient has better sleep quality and is more rested overall. Patient has significant improvement of his sleep apnea and is satisfied with current CPAP therapy. Patient denies problems with oral dryness, nasal congestion, epistaxis, skin irritation or aerophagia. Patient's apnea severity and rationale for treatment to reduce apnea, improve sleep quality and reduce cardiovascular and cerebrovascular events was reviewed. I also reviewed the benefit of consistent device use of CPAP for cardiac disease. 2. Obesity, unspecified. Currently patients BMI is 35.1. He has been losing weight, about 9 lbs. Obesity increases the risk of apnea, CPAP pressure requirements and overall health risks especially cardiovascular and diabetes. Thus patient is advised to continue to try to lose weight. Weight loss can be done with reducing portion size, reducing refined foods and balancing content with vegetables, fruit and whole grain foods. In addition, patient encouraged to get regular exercise. The patient's CPAP pressure range should accommodate some weight loss. * Continue auto CPAP pressure at 11-13 cmH2O * Update supplies * Notify me if snoring with mask or feeling that the pressure is too much or too little * Attempt to lose weight * Call this office if any problems using CPAP * Return for follow up in 1 year, or sooner if concerns arise Counseling Topics: Spare mask, Weight loss health impact Visit Type: In Office Time Spent with Patient (minutes): 21 Provider Statement: I spent 100% of the Face to Face Visit with the patient with greater than 50% spent counseling the patient and coordination of care.
== END 2022-03-27 14:39 | disposition home or self-care (01) ==
LOC: SC 14:38
PROVIDERS: ATTEND Nurse Practitioner Family
DX: G47.33 Obstructive sleep apnea (adult) (pediatric) (principal); E66.9 Obesity, unspecified; Z68.35 Body mass index [BMI] 35.0-35.9, adult
CPT/HCPCS: 99213; G0463; 99212

== ENCOUNTER 2022-05-11 10:33 | Outpatient (CLI) | payer MEDICARE, OTHER | END 2022-05-11 10:34 | disposition home or self-care (01) | LOC: LAB 10:33 | PROVIDERS: ATTEND Urology | DX: C61 Malignant neoplasm of prostate (principal) | CPT/HCPCS: 36415; 84153 ==

== ENCOUNTER 2022-10-30 08:33 | Outpatient (CLI) | payer MEDICARE, OTHER ==
[2022-10-30 08:50] LABS: BASOPHILS % (AUTO) 0.4 %; EOSINOPHILS # (AUTO) 0.2 10^3/uL (0.0-0.7); EOSINOPHILS % (AUTO) 2.8 %; HCT - HEMATOCRIT 43.4 % (42.0-52.0); HGB - HEMOGLOBIN 15.1 g/dL (14.0-18.0); LYMPHOCYTES # (AUTO) 1.9 10^3/uL (1.5-3.5); LYMPHOCYTES % (AUTO) 28.3 %; MEAN CORPUSCULAR HEMOGLOBIN 31.3 pg (27.0-31.0); MEAN CORPUSCULAR HGB CONC 34.8 g/dL (32.0-36.0); MEAN PLATELET VOLUME 9.6 fL (7.4-11.4); MONOCYTES # (AUTO) 0.5 10^3/uL (0.0-1.0); MONOCYTES % (AUTO) 7.9 %; NEUTROPHILS # (AUTO) 4.1 10^3/uL (1.5-6.6); NEUTROPHILS % (AUTO) 60.2 %; PLT - PLATELET COUNT 165 10^3/uL (130-450); RED BLOOD COUNT 4.82 10^6/uL (4.70-6.10); RED CELL DISTRIBUTION WIDTH 13.2 % (12.0-15.0); WHITE BLOOD COUNT 6.8 x10^3/uL (4.8-10.8)
[2022-10-30 09:18] LABS: ALBUMIN 4.2 g/dL (3.2-5.5); ALBUMIN/GLOBULIN RATIO 1.4 (1.0-2.2); ALKALINE PHOSPHATASE 48 IU/L (42-121); ALT ALANINE AMINOTRANSFERASE 36 IU/L (10-60); AST ASPARTATE AMINOTRANSFERASE 35 IU/L (10-42); BILIRUBIN,TOTAL 1.2 mg/dL (0.2-1.0); BUN - BLOOD UREA NITROGEN 14 mg/dL (6-20); CALCIUM 9.2 mg/dL (8.5-10.3); CARBON DIOXIDE - CO2 27 mmol/L (21-32); CHLORIDE 103 mmol/L (101-111); CHOL/HDL RATIO 3.3 (<5.0); CHOLESTEROL 147 mg/dL; GFR - MDRD 73 (>89); GLUCOSE 108 mg/dL (70-100); HDL CHOLESTEROL 45 mg/dL; LDL CHOLESTEROL,CALCULATED 84 mg/dL; LDL/HDL RATIO 1.9 (<3.6); POTASSIUM 4.1 mmol/L (3.5-5.0); SODIUM 137 mmol/L (135-145); TOTAL PROTEIN 7.2 g/dL (6.7-8.2); TRIGLYCERIDES 90 mg/dL; VLDL CHOLESTEROL 18 mg/dL
[2022-10-30 09:26] LABS: THYROID STIMULATING HORMONE 1.66 uIU/mL (0.34-5.60)
== END 2022-10-30 08:34 | disposition home or self-care (01) ==
LOC: LAB 08:33
PROVIDERS: ATTEND Student in an Organized Health Care Education/Training Program
DX: C61 Malignant neoplasm of prostate (principal); I10 Essential (primary) hypertension; E78.5 Hyperlipidemia, unspecified
CPT/HCPCS: 36415; 80053; 80061; 83721; 84153; 84443; 85025

== ENCOUNTER 2023-03-30 08:55 | Outpatient (CLI) | payer MEDICARE, OTHER ==
--- NOTE | 2023-03-30 09:32 | Sleep Patient Instructions ---
Sleep Center Visit Summary - Patient Visit Information Reason for Visit: Annual Visit for PAP therapy - Patient Instructions Additional Instructions: You will continue with CPAP therapy with pressure set at 11-13 cmH2O. A supply prescription will be updated with your DME. We encourage you to continue to try to lose weight. Please follow up with the sleep care office in 1 year. - Clinic Information Contact: [facility] [address] [place] [address] [email or web address] T: [phone]
[2023-03-30 09:36] VITALS: BP 115/69; O2SAT 95
--- NOTE | 2023-03-30 09:36 | SLEEP CARE CONSULTATION ---
Information from patient questionnaire entered by Judi Olivera. I have reviewed and concur with the information entered by Judi Olivera. This document represents the service I personally performed and the decisions made by me, Doreen Adam ARNP. History of Present Illness Service Date and Time: 03/30/2023 0855 Previous diagnosis: Severe, Obstructive Sleep Apnea-Hypopnea Syndrome AHI: 40.4 (in 2006) Reason for follow up: annual (LAST SEEN 03/2022) Accompanied by: Spouse Equipment type: CPAP (RESMED 10, s/u 03/2019) Equipment obtained from: [employer] (getting supplies as needed) Mask style: Nasal Mask brand: Respironics (Wisp) Backup mask available: Yes (old mask) Last cushion change: 1 week Prior sleep studies: Yes Year and Where: 2006 - [facility] in [place], [place] Type of Sleep Study: Polysomnography HPI additional information: TATIANA GILMORE was diagnosed to have severe, AHI 40.4, obstructive sleep apnea- hypopnea syndrome and returned today with spouse for CPAP therapy annual follow- up. Sleep Study - Results Type of Sleep Study: Polysomnography Prior sleep studies: Yes Year and Where: 2006 - [facility] in [place], [place] CPAP Compliance Data - Data Reviewed with Patient Average duration of nightly device use: 7 HRS 31 MINS Compliance rate %: 98 (09/27/22-03/25/23; 176/180 days used) Current pressure setting (cmH2O): 11-13 Average residual AHI: 1.9 Central apnea: 0.9 Obstructive apnea: 0.4 Hypopnea: 0.4 Average large leak: 23.2 L/min Compliance data discussion: He was using his backup machine when traveling. Subjective Missed days of use due to: reports: travel Patient concerns: reports: mask discomfort. denies: aerophagia, air blowing in eyes, mask leak noise, condensation in mask/hose, nasal congestion, dry mouth, nose, throat, epistaxis Observed to snore while using device: No Current pressure setting perceived as: comfortable On therapy, patient: reports: sleeping better, awakening more refreshed, being more awake and alert during the day, more rested overall. denies: drowsiness while driving Initial [place] Sleepiness Scale score: 3 (in 2010) Current [place] Sleepiness Scale score: 6 (03/30/23) Allergies and Home Medications Known drug allergies: No Drug allergies reviewed: Yes Home medication list reviewed: Yes (no changes) Allergy and home medication list: Allergies No Known Drug Allergies Allergy (Verified 03/29/23 08:40) Home Medications Medication Instructions Recorded Confirmed Last Taken Type Carvedilol 12.5 mg PO BID 06/23/14 03/30/23 06/24/20 History Levothyroxine [Synthroid] 150 mcg PO DAILY 06/23/14 03/30/23 06/24/20 History Loratadine [Claritin] 10 mg PO DAILY 06/23/14 03/30/23 06/24/20 History Losartan [Cozaar] 50 mg PO DAILY 10/31/14 03/30/23 06/24/20 History Simvastatin 20 mg PO DAILY PM 10/31/14 03/30/23 06/23/20 History Docusate Sodium 100 mg PO BID #60 capsule 09/19/19 03/30/23 Unknown Rx Ibuprofen 800 mg PO TID #60 tablet 09/19/19 03/30/23 Unknown Rx Aspirin [Aspirin EC] 81 mg PO DAILY 06/24/20 03/30/23 06/23/20 History Review of Systems Review of systems same as previous: Yes (no changes) Physical Exam Vital signs obtained and entered by: JUDI Rahman MA Blood Pressure: 115/69 (RIGHT) Cuff size: wrist Heart Rate: 59 O2 Saturation: 95 Height: 6 ft Weight: 261 lb 6.4 oz Body Mass Index: 35.4 BMI Classification: Obese Impression and Plan 1. Obstructive Sleep Apnea-Hypopnea Syndrome, severe, with good treatment compliance and good apnea control. On CPAP therapy, the patient has better sleep quality and is more rested overall. Patient has significant improvement of their sleep apnea and is satisfied with current CPAP therapy. Patient denies problems with oral dryness, nasal congestion, epistaxis, skin irritation or aerophagia. Patient's apnea severity and rationale for treatment to reduce apnea, improve sleep quality and reduce cardiovascular and cerebrovascular events was reviewed. I also reviewed the benefit of consistent device use of CPAP for cardiac disease. 2. Obesity, unspecified. Currently patients BMI is 35.4. Obesity increases the risk of apnea, CPAP pressure requirements and overall health risks especially cardiovascular and diabetes. Thus patient is advised to lose weight. * Continue auto CPAP pressure at 11-13 cmH2O * Update supplies * Notify me if snoring with mask or feeling that the pressure is too much or too little * Attempt to lose weight * Call this office if any problems using CPAP * Return for follow up in 1 year, or sooner if concerns arise Counseling Topics: Spare mask, Weight loss health impact Visit Type: In Office Time Spent with Patient (minutes): 20 Provider Statement: I spent 100% of the Face to Face Visit with the patient with greater than 50% spent counseling the patient and coordination of care.
== END 2023-03-30 08:56 | disposition home or self-care (01) ==
LOC: SC 08:55
PROVIDERS: ATTEND Nurse Practitioner Family
DX: G47.33 Obstructive sleep apnea (adult) (pediatric) (principal); E66.9 Obesity, unspecified; Z68.35 Body mass index [BMI] 35.0-35.9, adult
CPT/HCPCS: 99213; G0463; 99212

== ENCOUNTER 2023-04-28 10:50 | Outpatient (CLI) | payer MEDICARE, OTHER | END 2023-04-28 10:51 | disposition home or self-care (01) | LOC: LAB 10:50 | PROVIDERS: ATTEND Urology | DX: C61 Malignant neoplasm of prostate (principal) | CPT/HCPCS: 36415; 84153 ==

== ENCOUNTER 2023-08-18 10:15 | Outpatient (CLI) | payer MEDICARE, OTHER ==
--- NOTE | 2023-08-19 07:55 | XRAY Report ---
PROCEDURE: Chest 2V INDICATIONS: COUGH TECHNIQUE: 2 views of the chest were acquired. COMPARISON: Chest x-ray, 06/23/2014. FINDINGS: Surgical changes and devices: None. Lungs and pleura: No pleural effusions or pneumothorax. Lungs are clear. Mediastinum: Mediastinal contours appear normal. Heart size is normal. Bones and chest wall: No suspicious bony lesions. Overlying soft tissues appear unremarkable. IMPRESSION: No acute cardiopulmonary process. Reviewed by: Carleen Guthrie MD on 08/19/2023 7:53 AM [facility] Approved by: Carleen Guthrie MD on 08/19/2023 7:53 AM [facility] Station ID: [id number]
== END 2023-08-18 10:16 | disposition home or self-care (01) ==
LOC: DI 10:15
PROVIDERS: ATTEND Physician Assistant
DX: R05.9 Cough, unspecified (principal)

== ENCOUNTER 2023-10-26 09:48 | Outpatient (CLI) | payer MEDICARE, OTHER ==
[2023-10-26 10:02] LABS: BASOPHILS % (AUTO) 0.4 %; EOSINOPHILS # (AUTO) 0.1 10^3/uL (0.0-0.7); EOSINOPHILS % (AUTO) 2.5 %; HCT - HEMATOCRIT 42.7 % (42.0-52.0); HGB - HEMOGLOBIN 14.2 g/dL (14.0-18.0); LYMPHOCYTES # (AUTO) 1.7 10^3/uL (1.5-3.5); LYMPHOCYTES % (AUTO) 29.9 %; MEAN CORPUSCULAR HEMOGLOBIN 30.5 pg (27.0-31.0); MEAN CORPUSCULAR HGB CONC 33.3 g/dL (32.0-36.0); MEAN CORPUSCULAR VOLUME 91.6 fL (80.0-94.0); MEAN PLATELET VOLUME 9.6 fL (7.4-11.4); MONOCYTES # (AUTO) 0.5 10^3/uL (0.0-1.0); MONOCYTES % (AUTO) 8.8 %; NEUTROPHILS # (AUTO) 3.2 10^3/uL (1.5-6.6); NEUTROPHILS % (AUTO) 57.9 %; PLT - PLATELET COUNT 153 10^3/uL (130-450); RED BLOOD COUNT 4.66 10^6/uL (4.70-6.10); RED CELL DISTRIBUTION WIDTH 13.4 % (12.0-15.0); WHITE BLOOD COUNT 5.6 x10^3/uL (4.8-10.8)
[2023-10-26 10:20] LABS: ALBUMIN/GLOBULIN RATIO 1.5 (1.0-2.2); ALKALINE PHOSPHATASE 49 IU/L (42-121); ALT ALANINE AMINOTRANSFERASE 28 IU/L (10-60); AST ASPARTATE AMINOTRANSFERASE 28 IU/L (10-42); BILIRUBIN,TOTAL 0.9 mg/dL (0.2-1.0); BUN - BLOOD UREA NITROGEN 15 mg/dL (6-20); CALCIUM 9.5 mg/dL (8.5-10.3); CARBON DIOXIDE - CO2 30 mmol/L (21-32); CHLORIDE 106 mmol/L (101-111); CHOL/HDL RATIO 3.8 (<5.0); CHOLESTEROL 139 mg/dL; GFR - MDRD 72 (>89); GLUCOSE 104 mg/dL (74-104); HDL CHOLESTEROL 37 mg/dL; LDL CHOLESTEROL,CALCULATED 76 mg/dL; LDL/HDL RATIO 2.1 (<3.6); POTASSIUM 4.4 mmol/L (3.5-4.5); SODIUM 137 mmol/L (135-145); TOTAL PROTEIN 6.7 g/dL (6.4-8.9); TRIGLYCERIDES 128 mg/dL (48-352); VLDL CHOLESTEROL 26 mg/dL
== END 2023-10-26 09:49 | disposition home or self-care (01) ==
LOC: LAB 09:48
PROVIDERS: ATTEND Family Medicine
DX: E78.5 Hyperlipidemia, unspecified (principal); C61 Malignant neoplasm of prostate; E66.9 Obesity, unspecified; E03.9 Hypothyroidism, unspecified; I42.9 Cardiomyopathy, unspecified
CPT/HCPCS: 36415; 80053; 80061; 83721; 84153; 84439; 84443; 85025